=== PATIENT | female | born 1960 | race Caucasian/White ===

== ENCOUNTER 2017-02-07 14:24 | Emergency (ER) | payer BC ==
[~2017-02-07 14:24] MED LIST: ADVIL PO; BEN25 PO; BLACK COHOSH PO; COR20 PO; FLONASE NAS; KLOR-CON 1010 MEQ PO; L20 PO; MACROBID PO; MULTI-VIT HP PO; MULTIVIT/MIN PO; MULTIVITAMI1; NORCO PO; PRILO PO; PRILOSEC OTC20 MG PO; PRIN5 PO; SPIRO50 PO; VANCOCIN HCL125 MG PO; XIFAXAN550 MG PO
[2017-02-07 14:50] LABS: BASOPHILS 0.2 %; BASOPHILS ABSOLUTE 0.03 10/3/uL (0.0-0.16); EOSINOPHILS 0.5 %; EOSINOPHILS ABSOLUTE 0.07 10/3/uL (0.0-0.53); HEMATOCRIT 40.8 % (36.0-48.0); HEMOGLOBIN 14.6 g/dL (12.0-16.0); IMMATURE GRANULOCYTES 0.3 %; IMMATURE GRANULOCYTES ABSOLUTE 0.04 10/3/uL (0.0-0.11); LYMPHOCYTES ABSOLUTE 2.99 10/3/uL (0.67-4.30); MANUAL DIFF NO %; MEAN CORPUS HGB CONC 35.8 g/dL (32.0-36.0); MEAN CORPUSCULAR HEMOGLOB 31.5 pg (26.0-34.0); MEAN CORPUSCULAR VOLUME 88.1 fL (80-100); MEAN PLATELET VOLUME 9.2 fL (9.2-13.0); MONOCYTES 5.9 %; MONOCYTES ABSOLUTE 0.88 10/3/uL (0.21-1.20); NEUTROPHILS 73.1 %; NEUTROPHILS ABSOLUTE 10.95 10/3/uL (2.02-8.40); PLATELET COUNT 242 10/3/uL (150-400); RED CELL COUNT 4.63 10/6/uL (4.0-5.6)
[2017-02-07 15:06] LABS: BUN (BLOOD UREA NITROGEN) 9 MG/DL (6-23); CHLORIDE, SERUM 108 MMOL/L (96-112); CO2 (CARBON DIOXIDE) 22 MMOL/L (24-34); CREATININE 1.07 MG/DL (0.55-1.02); GFR AFRICAN AMERICAN 67 ML/MIN (>=60); GFR NON AFRICAN AMERICAN 58 ML/MIN (>=60); POTASSIUM, SERUM 3.2 MMOL/L (3.5-5.3); SGOT(AST) 13 U/L (5-40); SGPT(ALT) 20 U/L (5-65); SODIUM, SERUM 140 MMOL/L (135-148); TOTAL BILIRUBIN 0.8 MG/DL (0-1.2)
[2017-02-07 15:07] LABS: A/G RATIO 0.9 (0.7-1.9); ALBUMIN 3.7 G/DL (3.5-5.0); ALKALINE PHOSPHATASE 98 U/L (45-117); CALCIUM, SERUM 9.2 MG/DL (8.5-10.4); GLOBULIN 4.2 G/DL (2.5-4.1); GLUCOSE, SERUM 111 MG/DL (60-99); TOTAL PROTEIN 7.9 G/DL (6.0-8.5)
[2017-02-07 15:07] LABS: ASCORBIC ACID (UR NOT ORDER) NEG (NEG); BILIRUBIN, URINE SMALL (NEG); ER URINALYSIS TAT 0 Hrs 21 Mins; KETONE, URINE NEGATIVE (NEG); LEUKOCYTE ESTERASE(NOT OR MOD (NEG); NITRITE (URINE) NEG (NEG); WBC (NOT ORDERED) (RFLEX) 9 (0-5)
[2017-02-07 20:22] LABS: INTERNATIONAL NORMAL RATI 1.3 UNITS (-); PROTIME (NOT ORD) 15.6 SEC (12.0-14.5)
[2017-02-07 20:35] LABS: LACTATE 0.9 MMOL/L (0.3-2.4)
== END 2017-02-07 21:38 | disposition home or self-care (01) ==
LOC: ER 14:24
PROVIDERS: Hospitalist; Nurse Practitioner Acute Care
DX: R10.9 Unspecified abdominal pain (principal); R10.811 Right upper quadrant abdominal tenderness; R10.813 Right lower quadrant abdominal tenderness; R11.2 Nausea with vomiting, unspecified; E87.6 Hypokalemia; D72.829 Elevated white blood cell count, unspecified; K74.60 Unspecified cirrhosis of liver; I10 Essential (primary) hypertension; D64.9 Anemia, unspecified; F17.210 Nicotine dependence, cigarettes, uncomplicated; Z90.710 Acquired absence of both cervix and uterus; Z79.899 Other long term (current) drug therapy
CPT/HCPCS: 74176; 80053; 81001; 82140; 83605; 83690; 85025; 85610; 85730; 87045; 87046; 87046-59; 87086; 87493; 87493-59; 87899; 87899-59; 89055; 93005; 96374; 99284; A9270-GY; G0480; J2405